=== PATIENT | female | born 1935 | race Caucasian/White ===

== ENCOUNTER 2016-10-13 17:30 | Emergency (ER) | payer OTHER ==
[2016-10-13] MEDS ORDERED: NS 2,200 ML IV ONE (18:01)
--- NOTE | 2016-10-13 18:03 | EDPHY ---
H & P Stated Complaint: cough/fever low oxygen Time Seen by Provider: 10/13/16 17:54 HPI/ROS: CHIEF COMPLAINT: Cough, fever HISTORY OF PRESENT ILLNESS: The patient is an 81-year-old female who comes to the emergency department for a fever. She has had a cough productive of clear mucus for the last 3 days as well as sinus congestion. Today she developed a fever up to 101. she does not have any pulmonary history. She is also slightly hypoxic at triage. She denies chest pain. She denies abdominal pain. REVIEW OF SYSTEMS: Constitutional: denies: chills, fever, recent illness, recent injury EENTM: denies: blurred vision, double vision, nose congestion Respiratory: denies: cough, shortness of breath Cardiac: denies: chest pain, irregular heart rate, lightheadedness, palpitations Gastrointestinal/Abdominal: denies: abdominal pain, diarrhea, nausea, vomiting, blood streaked stools Genitourinary: denies: dysuria, frequency, hematuria, pain Musculoskeletal: denies: joint pain, muscle pain Skin: denies: lesions, rash, jaundice, bruising Neurological: denies: headache, numbness, paresthesia, tingling, dizziness, weakness Hematologic/Lymphatic: denies: blood clots, easy bleeding, easy bruising Immunologic/allergic: denies: HIV/AIDS, transplant EXAM: GENERAL: Well-appearing, well-nourished and in no acute distress. HEAD: Atraumatic, normocephalic. EYES: Pupils equal round and reactive to light, extraocular movements intact, sclera anicteric, conjunctiva are normal. ENT: TMs normal, nares patent, oropharynx clear without exudates. Moist mucous membranes. NECK: Normal range of motion, supple without lymphadenopathy or JVD. LUNGS: Breath sounds clear to auscultation bilaterally and equal. No wheezes rales or rhonchi. HEART: Regular rate and rhythm without murmurs, rubs or gallops. ABDOMEN: Soft, nontender, normoactive bowel sounds. No guarding, no rebound. No masses appreciated. BACK: No CVA tenderness, no spinal tenderness, step-offs or deformities EXTREMITIES: Normal range of motion, no pitting or edema. No clubbing or cyanosis. NEUROLOGICAL: Cranial nerves II through XII grossly intact. Normal speech, normal gait. 5/5 strength, normal movement in all extremities, normal sensation PSYCH: Normal mood, normal affect. SKIN: Warm, dry, normal turgor, no visible rashes or lesions. Source: Patient Exam Limitations: No limitations - Personal History Current Tetanus/Diphtheria Vaccine: Unsure - Medical/Surgical History Hx Asthma: No Hx Chronic Respiratory Disease: No Hx Diabetes: No Hx Cardiac Disease: No Hx Renal Disease: No Hx Cirrhosis: No Hx Alcoholism: No Hx HIV/AIDS: No Hx Splenectomy or Spleen Trauma: No Other PMH: bowel resection, appy, gallbladder out,enlarged heart,hypothyroid - Family History Significant Family History: No pertinent family hx - Social History Smoking Status: Former smoker Alcohol Use: Sober Drug Use: None Constitutional: Initial Vital Signs Temperature (C) 37.9 C 10/13/16 17:42 Heart Rate 76 10/13/16 17:42 Respiratory Rate 18 10/13/16 17:42 Blood Pressure 180/81 H 10/13/16 17:42 O2 Sat (%) 89 L 10/13/16 17:42 O2 Delivery Mode Room Air O2 (L/minute) 1 Allergies/Adverse Reactions: No Known Allergies Allergy (Verified 10/13/16 17:41) Home Medications: Medication Instructions Recorded Levothyroxine [Synthroid 88 mcg 12/13/14 (RX)] lamoTRIgine [Lamictal] 25 mg PO 12/13/14 Amlodipine Besylate 10/13/16 levOFLOXACIN [levAQUIN] 750 mg PO DAILY #10 tab 10/13/16 Medical Decision Making - Diagnostics Imaging: Discussed imaging studies w/ seafood processor Radiologist ED Course/Re-evaluation: 7:00 p.m. we discussed the patient's lab work and x-rays. The lab work is reassuring. The patient is still mildly hypoxic if she is off of oxygen. I recommended admission but she would very much like to go home. I will treat her with a DuoNeb and start her on Levaquin and reassess. 7:50 p.m. the patient is saturating 91% while ambulating. She continues to feel well and is eager to go home. I will prepare her paperwork for discharge once her antibiotics finished. 8:50 p.m. the patient's antibiotics are complete. She is feeling much better. She gets slightly hypoxic when she ambulates. She continues to wish to go home and declines admission. I will send her with an albuterol inhaler as needed. We gave her strict warnings for returning. She understands and agrees with this plan as does her . Again she was offered admission but declined. Differential Diagnosis: Partial list of the Differential diagnosis considered include but were not limited to; pneumonia, bronchitis, upper respiratory tract infection and although unlikely based on the history and physical exam, I also considered PE, acute coronary disease, sepsis, urinary tract infection. - Data Points Laboratory Results: Laboratory Results 10/13/16 18:10 10/13/16 18:10 Microbiology Results: MICROBIOLOGY 10/13/16 18:35 Blood Blood Culture - Preliminary 10/13/16 18:10 Blood Blood Culture - Preliminary Medications Given: Discontinued Medications Albuterol Sulfate (Proventil Inh Prepack) 1 mdi TAKEHOME EDNOW ONE Stop: 10/13/16 19:57 Last Admin: 10/13/16 21:00 Dose: 1 mdi Albuterol/Ipratropium (Duoneb) 3 ml IH EDNOW ONE Stop: 10/13/16 19:04 Last Admin: 10/13/16 19:20 Dose: 3 ml Sodium Chloride (Ns) 2,200 mls @ 4,400 mls/hr 30 ml/kg infuse over 30 min ( 2200 ml) IV EDNOW ONE PRN Reason: Protocol Stop: 10/13/16 18:30 Last Admin: 10/13/16 18:22 Dose: 2,200 mls Levofloxacin/Dextrose (Levaquin 750 Mg (Premix)) 150 mls @ 100 mls/hr IV EDNOW ONE PRN Reason: Protocol Stop: 10/13/16 20:32 Last Admin: 10/13/16 19:25 Dose: 150 mls Departure - Departure Disposition: Home, Routine, Self-Care Clinical Impression: Hypoxia Acute bronchitis Qualifiers: Bronchitis organism: unspecified organism Qualified Code(s): J20.9 - Acute bronchitis, unspecified Condition: Fair Instructions: Albuterol (By breathing), Acute Bronchitis (ED) Referrals: Barbie Blanc MD [Primary Care Provider] - As per Instructions Prescriptions: levOFLOXACIN [levAQUIN] 750 mg PO DAILY #10 tab
[2016-10-13 18:30] LABS: % IMMATURE GRANULYOCYTES 0.4 % (0.0-1.1); ABSOLUTE IMMATURE GRANULOCYTES 0.02 10^3/uL (0.00-0.10); ADD DIFF? NO; ADD MORPH? NO; ADD SCAN? NO; ATYPICAL LYMPHOCYTE FLAG 40 (0-99); FRAGMENT RBC FLAG 0 (0-99); HEMATOCRIT 38.9 % (38.0-47.0); HEMOGLOBIN 13.4 g/dL (12.6-16.3); LEFT SHIFT FLG 0 (0-99); LIPEMIA HEMOLYSIS FLAG 90 (0-99); MEAN CELL HEMOGLOBIN 31.1 pg (27.9-34.1); MEAN CELL HEMOGLOBIN CONCENTR. 34.4 g/dL (32.4-36.7); MEAN CELL VOLUME 90.3 fL (81.5-99.8); MEAN PLATELET VOLUME 9.4 fL (8.7-11.7); PLATELET CLUMPS FLAG 40 (0-99); PLATELET COUNT 151 10^3/uL (150-400); RED BLOOD CELL COUNT 4.31 10^6/uL (4.18-5.33); RED CELL DISTRIBUTION WIDTH 13.2 % (11.5-15.2)
[2016-10-13 18:33] LABS: ANION GAP 10 mEq/L (8-16); BILIRUBIN,TOTAL 0.6 mg/dL (0.1-1.4); CALCIUM 8.1 mg/dL (8.5-10.4); CARBON DIOXIDE 21 mEq/l (22-31); CHLORIDE 103 mEq/L (97-110); CREATININE 0.8 mg/dL (0.6-1.0); GLOMERULAR FILTRATION RATE > 60; GLUCOSE 95 mg/dL (70-100); POTASSIUM 4.4 mEq/L (3.5-5.2); SODIUM 134 mEq/L (134-144)
[2016-10-13 18:36] LABS: APTT 28.6 SEC (23.0-38.0); INR 1.06 (0.83-1.16); PROTIME(PATIENT) 13.7 SEC (12.0-15.0)
[2016-10-13 18:39] VITALS: O2SAT 93
[2016-10-13 18:43] VITALS: TEMP 99.4
[2016-10-13] MEDS ORDERED: IPRATROPIUM/ALBUTEROL 3 ML DEYVIAL IH ONE (19:03)
[2016-10-13 19:55] LABS: COLOR PALE YELLOW; LEUKOCYTE ESTERASE,URINE NEGATIVE (NEGATIVE); NITRITE,URINE NEGATIVE (NEGATIVE)
[2016-10-13] MEDS ORDERED: ALBUTEROL INH PREPACK MDI TAKEHOME ONE (19:56)
[2016-10-13 21:10] VITALS: BP 169/98; PULSE 92; RESP 20
== END 2016-10-13 21:09 | disposition home or self-care (01) ==
DX: J20.9 Acute bronchitis, unspecified (principal); R09.02 Hypoxemia; Z87.891 Personal history of nicotine dependence
CPT/HCPCS: 71020; 96365; 99284; J1956

== ENCOUNTER → 2018-01-31 | Outpatient (CLI) | payer OTHER | LOC: FIMAGING 12:41 | PROVIDERS: ATTEND Internal Medicine | DX: Z12.31 Encounter for screening mammogram for malignant neoplasm of breast (principal) ==